=== PATIENT | female | born 1930 | race Caucasian/White ===

== ENCOUNTER 2016-09-12 21:24 | Emergency (ER) | payer OTHER ==
[~2016-09-12] VITALS: Ht 144.8 cm; Wt 70.0 kg
[~2016-09-12 21:24] MED LIST: ASPCH81 PO; CLX20 PO; KFL500 PO; LCTX PO; PLV75 PO; SYN50 PO
[2016-09-12 21:42] VITALS: TEMP 37.4; Ht 144.8 cm; Wt 70.0 kg
[2016-09-12] MEDS ORDERED: [UNRECOGNIZED DRUG - CODE] PO (22:23)
[2016-09-12] MEDS ORDERED: PSYL48.59 PO (22:23)
--- NOTE | 2016-09-12 22:30 | DIAGNOSTIC IMAGING REPORT ---
CHEST ONE VIEW PORTABLE CLINICAL HISTORY: Chest trauma. Pain. COMPARISON STUDY: 06/21/2016 FINDINGS: The heart is mildly enlarged. There is mild interstitial prominence without evidence of overt failure. There is no lobar consolidation. There is mild elevation of the lateral margin of the left hemidiaphragm unchanged the prior study[ IMPRESSION: No significant change. Stable cardiomegaly and interstitial prominence. No acute findings Electronically signed by: Aníbal Guajardo M.D. 09/12/2016 10:28 PM Dictated Date/Time: 09/12/2016 10:27 PM
--- NOTE | 2016-09-12 22:32 | DIAGNOSTIC IMAGING REPORT ---
RIGHT WRIST MIN 3 VIEWS CLINICAL HISTORY: Right wrist pain status post trauma COMPARISON: None. DISCUSSION: The bones are osteopenic. There is an acute intra-articular fracture of the distal radius. There is a dorsal tilt of the radial articular surface of approximately 10 degrees. There is associated ulnar styloid fracture. IMPRESSION: Acute intra-articular fracture of distal radius with slight dorsal tilt of the radial articular surface. Associated ulnar styloid fracture. Electronically signed by: Aníbal Guajardo M.D. 09/12/2016 10:30 PM Dictated Date/Time: 09/12/2016 10:29 PM JAN
--- NOTE | 2016-09-12 22:33 | DIAGNOSTIC IMAGING REPORT ---
LEFT KNEE 3 VIEWS CLINICAL HISTORY: Left knee pain status post trauma COMPARISON: None. DISCUSSION: No fractures or dislocations are visualized. The bones are mildly osteopenic. There are very mild degenerative changes present. IMPRESSION: No acute fractures or dislocations are visualized Electronically signed by: Aníbal Guajardo M.D. 09/12/2016 10:31 PM Dictated Date/Time: 09/12/2016 10:31 PM
[2016-09-12 22:39] VITALS: O2SAT 95
[2016-09-12 22:42] LABS: BASO % 0.2 %; BASO ABS # 0.01 K/uL (0-0.2); COMPLETE YES; EOS % 0.4 %; HEMATOCRIT 40.1 % (37-47); IG% 0.2 %; LYMPH % 7.7 %; LYMPH ABS # 0.39 K/uL (1.2-3.4); MEAN CELL VOLUME 103.1 fL (80-100); MEAN CORPUSCULAR HEMOGLOBIN 35.7 pg (25-34); MEAN CORPUSCULAR HGB CONC 34.7 g/dl (32-36); MEAN PLATELET VOLUME 10.8 fL (7.4-10.4); MONO % 8.3 %; NEUT % 83.2 %; PLATELET COUNT 105 K/uL (130-400); RED BLOOD COUNT 3.89 M/uL (4.2-5.4); WHITE BLOOD COUNT 5.04 K/uL (4.8-10.8)
[2016-09-12] MEDS ORDERED: ACETAMINOPHEN 325 MG TAB PO STA (23:00)
--- NOTE | 2016-09-12 23:03 | EMERGENCY ROOM VISIT NOTE ---
ED Visit Note First contact with patient: 21:38 I have seen and examined this patient with Inocente Teague and generally agree with the treatment plan as discussed. Problem List Medical Problems: (1) Benign hypertension Status: Chronic (2) Depression Status: Chronic (3) Diabetes mellitus type 2 Status: Chronic (4) Gastroesophageal reflux disease Permanent Comment: 1999 Status: Chronic (5) History breast surgery for abscess Permanent Comment: 1951 Status: Chronic (6) History of appendectomy Permanent Comment: left inguinal hernia repair ? 1999 Status: Chronic (7) History of cholecystectomy Permanent Comment: 1997 Status: Chronic (8) History of repair of inguinal hernia Status: Chronic (9) Hypothyroidism Status: Chronic (10) Liver mass Permanent Comment: 2 cm hepatic lesion noted on CT [facility] 02/14/12 Status: Chronic Current/Historical Medications Scheduled Aspirin (Aspirin Low Strength), 81 MG PO QAM Citalopram Hydrobromide (Celexa), 20 MG PO DAILY Clopidogrel (Plavix), 75 MG PO DAILY Levothyroxine Sodium (Synthroid), 50 MCG PO DAILYBB Lisinopril (Zestril), 5 MG PO QAM Magnesium Chloride (Slow-Mag Tab), 64 MG PO DAILY Methenamine Hippurate (Methenamine Hippurate), 1 GM PO BID Omeprazole (Prilosec), 20 MG PO BID Psyllium (Metamucil), 1 TBS PO DAILY Sitagliptin (Januvia), 100 MG PO QAM Scheduled PRN Acetaminophen Tab (Tylenol), 650 MG PO Q4H PRN for Pain or Fever Phenylephrine-Diphenhydramine- (Robitussin Cough & Cold D), 10 ML PO TID PRN for Cough Allergies Coded Allergies: Codeine (Verified Allergy, Mild, 06/21/16) Erythromycin (Verified Allergy, Mild, 06/21/16) Metformin (Verified Allergy, Unknown, UNKN, 06/21/16) Morphine and Related (Verified Allergy, Unknown, unkn, 06/21/16) Vital Signs Date Time Temp Pulse Resp B/P Pulse Ox O2 Delivery O2 Flow Rate FiO2 09/12/16 22:47 62 09/12/16 22:39 95 Room Air 09/12/16 21:42 37.4 66 17 127/65 94 Room Air Laboratory Results 09/12/16 22:32 Red Blood Count 3.89, Mean Corpuscular Volume 103.1, Mean Corpuscular Hemoglobin 35.7, Mean Corpuscular Hemoglobin Concent 34.7, Mean Platelet Volume 10.8, Neutrophils (%) (Auto) 83.2, Lymphocytes (%) (Auto) 7.7, Monocytes (%) ( Auto) 8.3, Eosinophils (%) (Auto) 0.4, Basophils (%) (Auto) 0.2, Neutrophils # ( Auto) 4.19, Lymphocytes # (Auto) 0.39, Monocytes # (Auto) 0.42, Eosinophils # ( Auto) 0.02, Basophils # (Auto) 0.01 Test 09/12/16 21:46 09/12/16 22:32 Creatine Kinase MB Ratio (0-3.0) White Blood Count 5.04 K/uL (4.8-10.8) Red Blood Count 3.89 M/uL (4.2-5.4) Hemoglobin 13.9 g/dL (12.0-16.0) Hematocrit 40.1 % (37-47) Mean Corpuscular Volume 103.1 fL (80-100) Mean Corpuscular Hemoglobin 35.7 pg (25-34) Mean Corpuscular Hemoglobin Concent 34.7 g/dl (32-36) Platelet Count 105 K/uL (130-400) Mean Platelet Volume 10.8 fL (7.4-10.4) Neutrophils (%) (Auto) 83.2 % Lymphocytes (%) (Auto) 7.7 % Monocytes (%) (Auto) 8.3 % Eosinophils (%) (Auto) 0.4 % Basophils (%) (Auto) 0.2 % Neutrophils # (Auto) 4.19 K/uL (1.4-6.5) Lymphocytes # (Auto) 0.39 K/uL (1.2-3.4) Monocytes # (Auto) 0.42 K/uL (0.11-0.59) Eosinophils # (Auto) 0.02 K/uL (0-0.5) Basophils # (Auto) 0.01 K/uL (0-0.2) RDW Standard Deviation 55.4 fL (36.4-46.3) RDW Coefficient of Variation 14.7 % (11.5-14.5) Immature Granulocyte % (Auto) 0.2 % Immature Granulocyte # (Auto) 0.01 K/uL (0.00-0.02) Departure Information [facility] Patient Instructions A Signature Page, [facility]
[2016-09-12 23:06] LABS: ALB/GLOB RATIO 0.9 (0.9-2); ALT/SGPT 13 U/L (12-78); BLOOD UREA NITROGEN 27 mg/dl (7-18); BUN/CREATININE RATIO 41.4 (10-20); CHLORIDE 102 mmol/L (98-107); CREATININE 0.65 mg/dl (0.60-1.20); GLUCOSE 133 mg/dl (70-99)
[2016-09-12 23:07] LABS: ALKALINE PHOSPHATASE 71 U/L (45-117); CALCIUM 8.9 mg/dl (8.5-10.1); CARBON DIOXIDE 27 mmol/L (21-32); SODIUM 137 mmol/L (136-145)
[2016-09-12 23:32] LABS: INR 1.1 (0.9-1.1); PARTIAL THROMBOPLASTIN RATIO 1.1
[2016-09-12 23:37] LABS: POTASSIUM 3.9 mmol/L (3.5-5.1)
[2016-09-12 23:45] LABS: MAGNESIUM 1.7 mg/dl (1.8-2.4)
[2016-09-13] LABS: URINE APPEARANCE CLEAR (CLEAR); URINE BILIRUBIN NEG (NEG); URINE COLOR YELLOW; URINE EPITHELIAL CELL AUTO >30 /lpf (0-5); URINE NITRITE NEG (NEG); UROBILINOGEN NEG (NEG); ZZURINE CULT IF INDIC CATH NO
[2016-09-13 00:11] LABS: MANUAL MICROSCOPIC REQUIRED? NO; REVIEW REQ? YES
[2016-09-13 00:21] LABS: URINE MUCUS PRESENT (NONE PRSENT)
--- NOTE | 2016-09-13 01:11 | EMERGENCY ROOM VISIT NOTE ---
History First contact with patient: 21:38 Chief Complaint: FALL Stated Complaint: FALL/ LF KNEE & RT WRIST PAIN/WRIST W/DEFORMITY History of Present Illness The patient is a 86 year old female who presents to the Emergency Department via EMS for evaluation after sustaining a fall. The patient is a resident at a local [facility] care facility. It was thought that she fell at approximately 7 PM. It is uncertain if she struck her head. The patient does not communicate well secondary to her mental status. She complains of pain to the RIGHT wrist. She denies any head pain or pain anywhere else for that matter. History of present illness is limited secondary to the patient's baseline mental status. Review of Systems Review of systems Limited secondary to the patient's mental status. Past Medical/Surgical History Medical Problems: (1) Benign hypertension (2) CVA (cerebral vascular accident) (3) Depression (4) Diabetes mellitus type 2 (5) EKG abnormalities (6) Gastroesophageal reflux disease (7) History breast surgery for abscess (8) History of appendectomy (9) History of cholecystectomy (10) History of repair of inguinal hernia (11) Hypothyroidism (12) Liver mass Family History No pertinent family history Social History Smoking Status: Unknown if Ever Smoked Alcohol Use: none Drug Use: none Marital Status: Housing Status: lives alone, alf Occupation Status: retired Current/Historical Medications Scheduled Aspirin (Aspirin Low Strength), 81 MG PO QAM Citalopram Hydrobromide (Celexa), 20 MG PO DAILY Clopidogrel (Plavix), 75 MG PO DAILY Levothyroxine Sodium (Synthroid), 50 MCG PO DAILYBB Lisinopril (Zestril), 5 MG PO QAM Magnesium Chloride (Slow-Mag Tab), 64 MG PO DAILY Methenamine Hippurate (Methenamine Hippurate), 1 GM PO BID Omeprazole (Prilosec), 20 MG PO BID Psyllium (Metamucil), 1 TBS PO DAILY Sitagliptin (Januvia), 100 MG PO QAM Scheduled PRN Acetaminophen Tab (Tylenol), 650 MG PO Q4H PRN for Pain or Fever Phenylephrine-Diphenhydramine- (Robitussin Cough & Cold D), 10 ML PO TID PRN for Cough Allergies Coded Allergies: Codeine (Verified Allergy, Mild, 06/21/16) Erythromycin (Verified Allergy, Mild, 06/21/16) Metformin (Verified Allergy, Unknown, UNKN, 06/21/16) Morphine and Related (Verified Allergy, Unknown, unkn, 06/21/16) Physical Exam Vital Signs Date Time Temp Pulse Resp B/P Pulse Ox O2 Delivery O2 Flow Rate FiO2 09/13/16 02:31 85 20 149/73 94 09/13/16 01:40 72 20 115/73 95 Room Air 09/12/16 23:40 62 16 142/75 96 Room Air 09/12/16 22:47 62 09/12/16 22:39 95 Room Air 09/12/16 21:42 37.4 66 17 127/65 94 Room Air Pain Rating (0-10): 5 Physical Exam VITAL SIGNS - Vital signs and nursing notes were reviewed. GENERAL - 86-year-old female appearing her stated age. Pleasantly demented. SKIN - Gross examination of the entire body surface demonstrates a small area of ecchymosis to the anterior portion of the LEFT knee. No lacerations or abrasions noted throughout otherwise. HEAD - Normocephalic, Atraumatic. No Jordan's Sign or Raccoon's Eyes. No depressed skull fractures palpable. EYES - PERRL with EOMI bilaterally. Without subconjunctival hemorrhage. Palpebral conjunctiva pink and moist with no injection. EARS - No deformities of external structures noted on gross examination bilaterally. No hemotympanum present. No tympanic perforation noted. Handle of malleus, umbo, cone of light, pars tensa/flaccid all easily visualized. NOSE - Midline and without cyanosis. No epistaxis or clear watery discharge noted. Septum midline without deviation. No septal hematoma noted. No overlying ecchymosis noted. MOUTH/OROPHARYNX - Without perioral cyanosis. Tongue midline with equal elevation of palate bilaterally. No blood noted in the oropharynx. No tonsillar hypertrophy, erythema, or exudates noted. NECK - No tenderness to palpation over the cervical spinous processes. No cervical paraspinal muscle tenderness noted. LUNGS - Chest wall symmetric without accessory muscle use, intercostals retractions, or central cyanosis. No flail chest or depressed fractures noted. No tenderness to palpation across the anterior and posterior chest chavarria. Normal vesicular breath sounds CTA B/L. No wheezes, rales, or rhonchi appreciated. CARDIAC - RRR with S1/S2. No murmur, rubs, or gallops appreciated. ABDOMEN - Abdominal contour flat without pulsations or visible masses. BS normoactive all four quadrants. No rebound tenderness or guarding noted. No tenderness, palpable masses, hepatosplenomegaly, or ascites noted. EXTREMITIES - Slight deformity to the RIGHT wrist. Moderate tenderness to palpation. +3/5 radial and dorsalis pedis pulses palpated throughout. NEUROLOGIC - Cranial nerves II through XII grossly intact. Medical Decision & Procedures ER Provider Diagnostic Interpretation: Radiological imaging and reports were reviewed by myself. Radiologist's Interpretation as follows: CHEST ONE VIEW PORTABLE CLINICAL HISTORY: Chest trauma. Pain. COMPARISON STUDY: 06/21/2016 FINDINGS: The heart is mildly enlarged. There is mild interstitial prominence without evidence of overt failure. There is no lobar consolidation. There is mild elevation of the lateral margin of the left hemidiaphragm unchanged the prior study[ IMPRESSION: No significant change. Stable cardiomegaly and interstitial prominence. No acute findings LEFT KNEE 3 VIEWS CLINICAL HISTORY: Left knee pain status post trauma COMPARISON: None. DISCUSSION: No fractures or dislocations are visualized. The bones are mildly osteopenic. There are very mild degenerative changes present. IMPRESSION: No acute fractures or dislocations are visualized RIGHT WRIST W/NAVICULAR MIN 3 VIEWS CLINICAL HISTORY: Right wrist pain status post trauma COMPARISON: None. DISCUSSION: The bones are osteopenic. There is an acute intra-articular fracture of the distal radius. There is a dorsal tilt of the radial articular surface of approximately 10 degrees. There is associated ulnar styloid fracture. IMPRESSION: Acute intra-articular fracture of distal radius with slight dorsal tilt of the radial articular surface. Associated ulnar styloid fracture. Radiological imaging and reports were reviewed by myself. Radiologist's Interpretation per [facility] as follows: CT HEAD: No ICH, mass effect or edema. No skull fracture. Atrophy/white matter changes with redemonstration mesial left occipital encephalomalacia. Partial patient education left mastoid air cells. Comparison study dated 06/21/2016 CT C SPINE: No visualized fracture. Straightening of the normal lordotic curvature with mild focal kyphosis at C5-6. Presumed degenerative grade 1 anterior listhesis C4 on C5. Spondylosis greater at the C5-6 levels with posterior hypertrophic changes. Scattered small lytic appearing lesions; difficult to discern bony demineralization versus potential pathologic contribution such as multiple myeloma. Mucosal changes maxillary sinuses. Laboratory Results 09/12/16 22:32 Red Blood Count 3.89, Mean Corpuscular Volume 103.1, Mean Corpuscular Hemoglobin 35.7, Mean Corpuscular Hemoglobin Concent 34.7, Mean Platelet Volume 10.8, Neutrophils (%) (Auto) 83.2, Lymphocytes (%) (Auto) 7.7, Monocytes (%) ( Auto) 8.3, Eosinophils (%) (Auto) 0.4, Basophils (%) (Auto) 0.2, Neutrophils # ( Auto) 4.19, Lymphocytes # (Auto) 0.39, Monocytes # (Auto) 0.42, Eosinophils # ( Auto) 0.02, Basophils # (Auto) 0.01 09/12/16 22:32 09/12/16 23:09 Test 09/12/16 22:32 09/12/16 23:09 09/12/16 23:45 White Blood Count 5.04 K/uL (4.8-10.8) Red Blood Count 3.89 M/uL (4.2-5.4) Hemoglobin 13.9 g/dL (12.0-16.0) Hematocrit 40.1 % (37-47) Mean Corpuscular Volume 103.1 fL (80-100) Mean Corpuscular Hemoglobin 35.7 pg (25-34) Mean Corpuscular Hemoglobin Concent 34.7 g/dl (32-36) Platelet Count 105 K/uL (130-400) Mean Platelet Volume 10.8 fL (7.4-10.4) Neutrophils (%) (Auto) 83.2 % Lymphocytes (%) (Auto) 7.7 % Monocytes (%) (Auto) 8.3 % Eosinophils (%) (Auto) 0.4 % Basophils (%) (Auto) 0.2 % Neutrophils # (Auto) 4.19 K/uL (1.4-6.5) Lymphocytes # (Auto) 0.39 K/uL (1.2-3.4) Monocytes # (Auto) 0.42 K/uL (0.11-0.59) Eosinophils # (Auto) 0.02 K/uL (0-0.5) Basophils # (Auto) 0.01 K/uL (0-0.2) RDW Standard Deviation 55.4 fL (36.4-46.3) RDW Coefficient of Variation 14.7 % (11.5-14.5) Immature Granulocyte % (Auto) 0.2 % Immature Granulocyte # (Auto) 0.01 K/uL (0.00-0.02) Anion Gap 8.0 mmol/L (3-11) Est Creatinine Clear Calc Drug Dose 50.2 ml/min Estimated GFR () 93.2 Estimated GFR (Non- 80.4 BUN/Creatinine Ratio 41.4 (10-20) Calcium Level 8.9 mg/dl (8.5-10.1) Total Bilirubin 0.6 mg/dl (0.2-1) Alanine Aminotransferase (ALT/SGPT) 13 U/L (12-78) Alkaline Phosphatase 71 U/L (45-117) Creatine Kinase MB < 0.5 ng/ml (0.5-3.6) Creatine Kinase MB Ratio (0-3.0) Total Protein 6.9 gm/dl (6.4-8.2) Albumin 3.2 gm/dl (3.4-5.0) Globulin 3.7 gm/dl (2.5-4.0) Albumin/Globulin Ratio 0.9 (0.9-2) Prothrombin Time 12.0 SECONDS (9.0-12.0) Prothromb Time International Ratio 1.1 (0.9-1.1) Activated Partial Thromboplast Time 28.8 SECONDS (21.0-31.0) Partial Thromboplastin Ratio 1.1 Magnesium Level 1.7 mg/dl (1.8-2.4) Aspartate Amino Transf (AST/SGOT) 13 U/L (15-37) Total Creatine Kinase 20 U/L (26-192) Urine Color YELLOW Urine Appearance CLEAR (CLEAR) Urine pH 6.0 (4.5-7.5) Urine Specific Needles 1.020 (1.000-1.030) Urine Protein NEG (NEG) Urine Glucose (UA) NEG (NEG) Urine Ketones NEG (NEG) Urine Occult Blood NEG (NEG) Urine Nitrite NEG (NEG) Urine Bilirubin NEG (NEG) Urine Urobilinogen NEG (NEG) Urine Leukocyte Esterase NEG (NEG) Urine WBC (Auto) 1-5 /hpf (0-5) Urine RBC (Auto) 0-4 /hpf (0-4) Urine Hyaline Casts (Auto) 1-5 /lpf (0-5) Urine Epithelial Cells (Auto) >30 /lpf (0-5) Urine Bacteria (Auto) NEG (NEG) Urine Renal Epithelial Cells /lpf (0-5) Urine Mucus PRESENT (NONE PRSENT) Procedure Patient was placed on the cafeteria monitor and monitored throughout the entire extent of their stay. In addition, the patient's pulse oximetry was monitored throughout the entire stay. Any abnormalities or aberrancies were addressed appropriately. ECG Indication: other (fall) Rate (beats per minute): 63 Rhythm: normal sinus Findings: nonspecific-ST abn (Anterior) Comparison ECG Date: no longer T-wave inversions in anterior leads when compared to 06/21/2016. ED Course Patient was seen and evaluated by myself. Previous emergency department visit notes and hospitalizations were reviewed. On initial evaluation, the patient does have some mild edema and possible deformity noted to the RIGHT wrist. The patient does not communicate well secondary to dementia. It was reported the patient had a mechanical fall. I did have them perform x-rays immediately and the patient was placed in a sugar tong splint for comfort. Splint was placed by the emergency department biochemistry technician under my direct supervision. Patient remained neurovascularly intact pre-and post-splinting. This did appear to provide the patient a moderate amount of comfort. Labs were drawn, saline lock in place. Chest x-ray as well as x-ray of the LEFT knee were obtained. EKG demonstrates no acute findings. CT of head and cervical spine were obtained. Laboratory results demonstrate no acute leukocytosis, worrisome anemia, or bandemia. The patient has no significant electrolyte abnormalities. Cardiac enzymes are negative. Troponin is negative. CT of the head and neck are otherwise unremarkable. The patient was able to ambulate in the emergency Department without assistance. She was provided an arm sling for comfort. She will return to the nursing facility. It was stressed that she will need to follow-up with orthopedic surgery for definitive management of her wrist fracture. Patient discharged home in good condition. Medical Decision Given the patient's presentation and exam findings, I did elect to perform the above-mentioned workup. The patient was sent today after sustaining a fall that was unwitnessed. She does have moderate edema and fracture to the RIGHT distal wrist. She has no other noted significant trauma findings. CT the head and cervical spine injury no acute findings. She has no focal neurological deficits. She is pleasantly demented otherwise. The patient tolerated the pain well, particularly after splint was applied for comfort. The patient will follow-up with orthopedic surgery within the next few days for continued management. She will return for any changing or worsening symptoms. Patient discharged home in good condition. In the evaluation and treatment of this patient, the following differential diagnoses were considered: CVA, TIA, cervical fracture, subdural hematoma, subarachnoid hemorrhage, ACS, NE, wrist dislocation, amongst others. Impression Primary Impression: Radius and ulna distal fracture Additional Impression: Fall Departure Information Dispostion Home / Self-Care Condition GOOD [facility] ([facility] Murali Whiteside D.O. Patient Instructions A Signature Page, [facility] [employer] Additional Instructions You have been treated in the Emergency Department for your Distal Radius and Ulnar Fractures after a mechanical fall. For pain control, you can use the following [id number] medicines (if >12 yo): - Regular strength (325mg/tab) Tylenol (acetaminophen) 2 tabs every 4-6 hours as needed. Do not exceed 12 tablets in a 24 hour period. Avoid taking more than 4 grams (4000 mg) of Tylenol per day. This includes any other sources of acetaminophen you may take on a regular basis. - Regular strength (200 mg/tab) Advil (ibuprofen) 1-2 tabs every 4-6 hours as needed. Do not exceed a dose of 3200 mg per day. If this is a recent injury (<24 hrs), ice can be applied to the area of pain for the first 3 days to help decrease pain and inflammation. You have been provided the number for an Orthopaedic Surgeon. You should call this number as soon as possible to establish a follow-up visit from today's Emergency Department visit. Keep the brace in place until evaluated by Orthopedics. Return to the Emergency Department if your current symptoms worsen despite treatment course outlined above, or if you develop any of the following symptoms : intractable pain despite aforementioned treatment course or new onset of numbness or tingling of the fingers.
[2016-09-13 02:31] VITALS: BP 149/73; PULSE 85; O2SAT 94
--- NOTE | 2016-09-13 07:13 | DIAGNOSTIC IMAGING REPORT ---
HEAD CT NONCONTRAST CT DOSE: HISTORY: fall TECHNIQUE: Multiaxial CT images of the head were performed without the use of intravenous contrast. Automated exposure control was utilized for this study. Comparison: Head CT 06/21/2016. Findings: A few opacified left mastoid air cells, unchanged. Paranasal sinuses and right mastoid air cells are clear. The calvarium and skull base are intact. There is no mass, hematoma, midline shift, acute infarct. White matter hypodensity is nonspecific but suggestive of microvascular ischemic change. The ventricles and sulci demonstrate mild age-related involutional changes. Old infarct within the left occipital lobe, unchanged. Old lacunar infarcts within the basal ganglia and thalami. Impression: No significant change compared to the prior study. No acute intracranial abnormality. Electronically signed by: Zhen Rosas M.D. 09/13/2016 7:11 AM Dictated Date/Time: 09/13/2016 7:08 AM
--- NOTE | 2016-09-13 07:25 | DIAGNOSTIC IMAGING REPORT ---
CT SCAN OF THE CERVICAL SPINE CLINICAL HISTORY: Fall. Trauma. COMPARISON STUDY: No priors. TECHNIQUE: CT scan of the cervical spine is performed from the skull base to the upper thoracic spine. Images are reviewed in the axial, sagittal, and coronal planes. IV contrast was not administered for this examination. CT DOSE: 927.56 mGy.cm FINDINGS: Skeletal structures: The skeletal structures are osteopenic. There is no evidence of fracture or subluxation involving the cervical spine. Vertebral body height is maintained. There is 3 mm of anterolisthesis at C4-C5. Minimal anterolisthesis is present C5-C6. Alignment is otherwise preserved. There is straightening of cervical lordosis with reversal centered at C5. The odontoid process and lateral masses are intact. The atlantoaxial articulation is preserved. The spinous processes appear intact. There is moderate multilevel cervical spondylosis. Uncovertebral and facet arthropathy contribute to neural foraminal narrowing at several levels. This is greatest in the lower cervical region. Intervertebral discs: There is moderate degenerative disc space narrowing at C5-C6. Mild narrowing is seen at C4-C5 and C6-C7. Central canal: A posterior disc osteophyte complex at C5-C6 likely contributes to acquired compromise of the central canal. Soft tissues: The prevertebral and paraspinous soft tissues are within normal limits. There is atherosclerotic calcification of the carotid bulbs. Calcified tonsilliths are incidentally noted. Calvarium: The visualized calvarium at the skull base appears intact. Brain parenchyma: Partially visualized brain parenchyma the skull base is within normal limits noting age-related involutional change. Sinuses and mastoids: The visualized paranasal sinuses are clear. There is a left mastoid effusion. The right mastoid air cells are well pneumatized. Lung apices: A calcified granuloma is incidentally noted at the left apex. Imaged apical lung parenchyma is otherwise clear as visualized. IMPRESSION: 1. There is no evidence of fracture or subluxation involving the cervical spine. 2. Osteopenia and spondylosis as above. Electronically signed by: Adan Chairez M.D. 09/13/2016 7:23 AM Dictated Date/Time: 09/13/2016 7:19 AM
[2016-11-27] MEDS ORDERED: LISI-729 PO (13:20)
[2016-11-27] MEDS ORDERED: SITA1TAB27 PO (14:17)
[2016-11-27] MEDS ORDERED: OMEP20CA59 PO (14:17)
== END 2016-09-13 02:34 | disposition home or self-care (01) ==
LOC: EDBD 21:24 → C.EDB 21:26
DX: S52.571A Other intraarticular fracture of lower end of right radius, initial encounter for closed fracture (principal); S52.614A Nondisplaced fracture of right ulna styloid process, initial encounter for closed fracture; F03.90 Unspecified dementia, unspecified severity, without behavioral disturbance, psychotic disturbance, mood disturbance, and anxiety; I10 Essential (primary) hypertension; E11.9 Type 2 diabetes mellitus without complications; E03.9 Hypothyroidism, unspecified; F32.9 Major depressive disorder, single episode, unspecified; K21.9 Gastro-esophageal reflux disease without esophagitis; Z79.02 Long term (current) use of antithrombotics/antiplatelets; Z79.82 Long term (current) use of aspirin; Z79.84 Long term (current) use of oral hypoglycemic drugs; Z79.899 Other long term (current) drug therapy; Z88.1 Allergy status to other antibiotic agents; Z88.5 Allergy status to narcotic agent; Z88.8 Allergy status to other drugs, medicaments and biological substances; Z86.73 Personal history of transient ischemic attack (TIA), and cerebral infarction without residual deficits; W19.XXXA Unspecified fall, initial encounter
CPT/HCPCS: 29125; P9612

== ENCOUNTER → 2016-09-13 | Outpatient (CLI) | payer OTHER ==
[~2016-09-13] MED LIST changes: +ACET325T96 PO; +CITA20TA9 PO; +CLOP1TAB15 PO; -CLX20 PO; -KFL500 PO; -LCTX PO; +LEVO50TA PO; +LISI-729 PO; +MAGNTAB4 PO; +METH1TAB5 PO; +NF406 PO; +NUTR-706 PO; +OMEP20CA59 PO; +OSEL75CA12 PO; -PLV75 PO; +PSYL48.58 PO; +PSYL48.59 PO; +SITA1TAB27 PO; -SYN50 PO; +[UNRECOGNIZED DRUG - CODE] PO; +[UNRECOGNIZED DRUG - CODE] PO
== END | disposition home or self-care (01) ==
LOC: C.LABSPEC 16:36
PROVIDERS: ATTEND Internal Medicine
DX: J11.1 Influenza due to unidentified influenza virus with other respiratory manifestations (principal)

== ENCOUNTER 2016-09-16 11:20 | Emergency (ER) | payer OTHER ==
[~2016-09-16 11:20] MED LIST changes: -ACET325T96 PO; -CITA20TA9 PO; -CLOP1TAB15 PO; -LEVO50TA PO; -LISI-729 PO; -MAGNTAB4 PO; -METH1TAB5 PO; -NF406 PO; -NUTR-706 PO; -OMEP20CA59 PO; -OSEL75CA12 PO; -PSYL48.58 PO; -SITA1TAB27 PO; -[UNRECOGNIZED DRUG - CODE] PO
[2016-09-16] MEDS ORDERED: NF406 PO (11:48)
[2016-09-16] MEDS ORDERED: SODIUM CHLORIDE 0.9% 1000ML 500 ML IV STA (12:04)
[2016-09-16] MEDS ORDERED: ONDANSETRON INJ 2 MG/ML 2 ML VIAL IV STA (12:04)
[2016-09-16] MEDS ORDERED: ACETAMINOPHEN 500 MG TAB PO STA (12:04)
[2016-09-16 12:15] LABS: HEMATOCRIT 40.6 % (37-47); MEAN CELL VOLUME 102.8 fL (80-100); MEAN CORPUSCULAR HEMOGLOBIN 36.2 pg (25-34); MEAN CORPUSCULAR HGB CONC 35.2 g/dl (32-36); RED BLOOD COUNT 3.95 M/uL (4.2-5.4); WHITE BLOOD COUNT 3.86 K/uL (4.8-10.8)
--- NOTE | 2016-09-16 12:20 | EMERGENCY ROOM VISIT NOTE ---
History Report prepared by Fredi: Eric Amos Under the Supervision of: Dr. Anshu Guerrier M.D. First contact with patient: 11:53 Chief Complaint: ALTERED MENTAL STATUS Stated Complaint: ALTERED MENTAL STATUS Nursing Triage Summary: pt to the ED via EMS from [facility], pt was seen here on 09/12 and tested + for the flu her baseline mental status is she is A&o and since the +flu pt has had decreased PO intake and doesn't walk now which she did previously. pt able to say her name and that this is the hospital pt has a right arm FA cast BSg per EMS 111 History of Present Illness The patient is an 86 year old female who presents to the Emergency Room with complaints of persistent altered mental status that started a few days ago. The patient was taken here via EMS. Per the nursing staff, the patient tested positive for influenza 4 days ago. Ever since then she has been getting confused. The patient says she is not feeling well. She does not know what year it is and she does not know where she is. The patient's baseline mental status is awake and alert, per the nursing staff. She has also had reduced by-mouth intake lately. History is limited secondary to patient's altered mental status. Source of History: patient, nursing staff History Limited By: AMS Onset: A few days ago Position: other (global - AMS) Quality: other (confused) Timing: other (persistent) Note: Associated symptoms: Confusion, reduced by-mouth intake. Review of Systems ROS limited secondary to patient's altered mental status. Past Medical & Surgical Medical Problems: (1) Benign hypertension (2) CVA (cerebral vascular accident) (3) Depression (4) Diabetes mellitus type 2 (5) EKG abnormalities (6) Gastroesophageal reflux disease (7) History breast surgery for abscess (8) History of appendectomy (9) History of cholecystectomy (10) History of repair of inguinal hernia (11) Hypothyroidism (12) Liver mass Family History No pertinent family history Social History Smoking Status: Unknown if Ever Smoked Alcohol Use: none Drug Use: none Marital Status: Housing Status: lives alone, jail Occupation Status: retired Current/Historical Medications Scheduled Citalopram Hydrobromide (Celexa), 20 MG PO DAILY Clopidogrel (Plavix), 75 MG PO DAILY Levothyroxine Sodium (Synthroid), 50 MCG PO DAILYBB Lisinopril (Zestril), 5 MG PO QAM Magnesium Chloride (Slow-Mag Tab), 64 MG PO DAILY Methenamine Hippurate (Methenamine Hippurate), 1 GM PO BID Omeprazole (Prilosec), 20 MG PO BID Oseltamivir (Tamiflu), 75 MG PO BID Oseltamivir Phosphate (Tamiflu), 75 MG PO BID Psyllium (Metamucil), 1 TBS PO DAILY Sitagliptin (Januvia), 100 MG PO QAM Scheduled PRN Acetaminophen Tab (Tylenol), 650 MG PO Q4H PRN for Pain or Fever Phenylephrine-Diphenhydramine- (Robitussin Cough & Cold D), 10 ML PO TID PRN for Cough Allergies Coded Allergies: Codeine (Verified Allergy, Mild, 06/21/16) Erythromycin (Verified Allergy, Mild, 06/21/16) Metformin (Verified Allergy, Unknown, UNKN, 06/21/16) Morphine and Related (Verified Allergy, Unknown, unkn, 06/21/16) Physical Exam Vital Signs Date Time Temp Pulse Resp B/P Pulse Ox O2 Delivery O2 Flow Rate FiO2 09/16/16 15:07 36.8 60 16 161/86 98 Room Air 2.0 09/16/16 13:19 97 Room Air 09/16/16 13:18 96 Nasal Cannula 2.0 09/16/16 12:50 55 09/16/16 12:45 54 16 167/82 97 Room Air 09/16/16 11:27 37.0 59 20 163/73 95 Room Air 09/16/16 11:27 59 Physical Exam CONSTITUTIONAL: No acute distress. HEENT: No icterus, moist mucous membranes NECK: No meningismus, trachea is midline. CARDIOVASCULAR: Regular rate, normal perfusion RESPIRATORY: Coarse breath sounds bilaterally. GASTROINTESTINAL: Non-tender GENITOURINARY: No flank tenderness MUSCULOSKELETAL: Full range of motion NEUROLOGIC: No acute gross focal deficits. PSYCHIATRIC: Normal affect SKIN: Normal for ethnicity. Medical Decision & Procedures ER Provider Diagnostic Interpretation: X-ray results as stated below per my interpretation and radiologist interpretation. Other radiology results as stated below per my review and radiologist interpretation. CT HEAD WITHOUT CONTRAST (CT) CLINICAL HISTORY: Acute change in mental status. Flulike symptoms. COMPARISON STUDY: 09/12/2016 TECHNIQUE: Axial CT of the brain is performed from the vertex to the skull base. IV contrast was not administered for this examination. CT DOSE: 638.56 mGycm FINDINGS: No intra or extra-axial mass lesions are visualized. There is no CT evidence of acute cortical infarction. There is no evidence of midline shift. There is no acute hemorrhage. No calvarial fractures are visualized. There are moderate white matter hypodensities likely on a small vessel basis. There is an old left occipital lobe infarct. There are old bilateral thalamic, and basal ganglia infarcts. There is no evidence of pathologic ventricular dilatation. There is a trace left maxillary sinus air-fluid level. There is mucosal thickening within the right maxillary sinus. There is minimal sphenoid and ethmoid sinus mucosal thickening IMPRESSION: 1. Interval development of a trace left maxillary sinus air-fluid level 2. No acute intracranial findings Electronically signed by: Aníbal Guajardo M.D. 09/16/2016 12:44 PM Dictated Date/Time: 09/16/2016 12:42 PM CHEST 2 VIEWS ROUTINE CLINICAL HISTORY: Altered mental status. Flu. COMPARISON STUDY: Chest radiograph February or 2016. FINDINGS: No pneumothorax or pleural effusion is present. There is no consolidation. Pulmonary vascularity is normal. Cardiomediastinal silhouette is stable. A 1.8 cm left infrahilar density likely reflects normal vessels. IMPRESSION: 1. No acute cardiopulmonary findings. 2. 1.8 cm left perihilar density. This likely reflects normal vessels. A nodule is considered less likely. Short-term follow-up PA and shallow oblique radiographs of the chest are recommended. Electronically signed by: Stuart Salcido M.D. 09/16/2016 2:57 PM Dictated Date/Time: 09/16/2016 2:54 PM Laboratory Results 09/16/16 11:47 Red Blood Count 3.95, Mean Corpuscular Volume 102.8, Mean Corpuscular Hemoglobin 36.2, Mean Corpuscular Hemoglobin Concent 35.2, Mean Platelet Volume 10.3, Neutrophils (%) (Auto) 49.4, Lymphocytes (%) (Auto) 36.3, Monocytes (%) ( Auto) 10.6, Eosinophils (%) (Auto) 3.4, Basophils (%) (Auto) 0.3, Neutrophils # (Auto) 1.91, Lymphocytes # (Auto) 1.40, Monocytes # (Auto) 0.41, Eosinophils # ( Auto) 0.13, Basophils # (Auto) 0.01 09/16/16 11:47 09/16/16 12:50 Test 09/16/16 11:47 09/16/16 12:48 09/16/16 12:50 09/16/16 13:30 White Blood Count 3.86 K/uL (4.8-10.8) Red Blood Count 3.95 M/uL (4.2-5.4) Hemoglobin 14.3 g/dL (12.0-16.0) Hematocrit 40.6 % (37-47) Mean Corpuscular Volume 102.8 fL (80-100) Mean Corpuscular Hemoglobin 36.2 pg (25-34) Mean Corpuscular Hemoglobin Concent 35.2 g/dl (32-36) Platelet Count 94 K/uL (130-400) Mean Platelet Volume 10.3 fL (7.4-10.4) Neutrophils (%) (Auto) 49.4 % Lymphocytes (%) (Auto) 36.3 % Monocytes (%) (Auto) 10.6 % Eosinophils (%) (Auto) 3.4 % Basophils (%) (Auto) 0.3 % Neutrophils # (Auto) 1.91 K/uL (1.4-6.5) Lymphocytes # (Auto) 1.40 K/uL (1.2-3.4) Monocytes # (Auto) 0.41 K/uL (0.11-0.59) Eosinophils # (Auto) 0.13 K/uL (0-0.5) Basophils # (Auto) 0.01 K/uL (0-0.2) RDW Standard Deviation 54.5 fL (36.4-46.3) RDW Coefficient of Variation 14.5 % (11.5-14.5) Immature Granulocyte % (Auto) 0.0 % Immature Granulocyte # (Auto) 0.00 K/uL (0.00-0.02) Anion Gap 9.0 mmol/L (3-11) Estimated GFR () 93.2 Estimated GFR (Non- 80.4 BUN/Creatinine Ratio 49.1 (10-20) Calcium Level 9.1 mg/dl (8.5-10.1) Alanine Aminotransferase (ALT/SGPT) 12 U/L (12-78) Alkaline Phosphatase 68 U/L (45-117) Troponin I 0.017 ng/ml (0-0.045) Pro-B-Type Natriuretic Peptide 550 pg/ml (0-1800) Total Protein 6.4 gm/dl (6.4-8.2) Albumin 3.1 gm/dl (3.4-5.0) Globulin 3.3 gm/dl (2.5-4.0) Albumin/Globulin Ratio 0.9 (0.9-2) Influenza Type A Antigen POS for Influ A (NEG) Influenza Type B Antigen Neg for Influ B (NEG) Total Bilirubin 0.5 mg/dl (0.2-1) Direct Bilirubin 0.2 mg/dl (0-0.2) Aspartate Amino Transf (AST/SGOT) 16 U/L (15-37) Urine Color DK YELLOW Urine Appearance CLEAR (CLEAR) Urine pH 5.5 (4.5-7.5) Urine Specific Sharon 1.021 (1.000-1.030) Urine Protein NEG (NEG) Urine Glucose (UA) NEG (NEG) Urine Ketones TRACE (NEG) Urine Occult Blood NEG (NEG) Urine Nitrite NEG (NEG) Urine Bilirubin NEG (NEG) Urine Urobilinogen NEG (NEG) Urine Leukocyte Esterase TRACE (NEG) Urine WBC (Auto) 5-10 /hpf (0-5) Urine RBC (Auto) 0-4 /hpf (0-4) Urine Hyaline Casts (Auto) 1-5 /lpf (0-5) Urine Epithelial Cells (Auto) >30 /lpf (0-5) Urine Bacteria (Auto) 1+ (NEG) Urine Renal Epithelial Cells /lpf (0-5) Urine Pathogenic Casts /lpf (0) Urine Mucus PRESENT (NONE PRSENT) Labs reviewed by ED physician. Medications Administered Medications (Trade) Dose Ordered Sig/Corrine Route Start Time Stop Time Status Last Admin Dose Admin Ondansetron HCl (Zofran Inj) 4 mg NOW STAT IV 09/16/16 12:04 09/16/16 12:06 DC 09/16/16 13:12 4 MG Acetaminophen 1000 mg 1,000 mg NOW STAT PO 09/16/16 12:04 09/16/16 12:06 DC 09/16/16 13:20 1,000 MG Sodium Chloride (Nss 1000ml) 500 ml @ 0 mls/hr Q0M STAT IV 09/16/16 12:04 09/16/16 12:06 DC 09/16/16 13:10 0 MLS/HR ECG Indication: altered mental status Rate (beats per minute): 60 Rhythm: normal sinus Findings: no ectopy, other (nonspecific-ST findings) ED Course 1201: Past medical records reviewed. The patient was evaluated in room C7. A complete history and physical examination was performed. 1204: Ordered NSS 500 ml @ 0 mls/hr Wide Open IV, Tylenol Tab 1000 mg PO, Zofran Inj 4 mg IV. 1336: I discussed the patient with a staff member at [facility] - she said that the patient has had worsening speaking difficulties over the past several days. 1500: I reevaluated the patient and she is resting comfortably. The patient expressed agreement and understanding of the treatment plan. The patient will be discharged. 1507: Ordered Tamiflu Cap 75 mg PO. Medical Decision Differential diagnoses include: viral syndrome, intracranial bleed, bacterial infection. 86 year presented to the emergency room from [facility] for evaluation of decreased by mouth intake and decreased verbal expression of herself over the last few days. This history was confirmed with Bessy at [facility] who reports she knows patient well. Patient is already known to have influenza A. Patient is awake, pleasant and cooperative although she appears tired. She is not oriented to place, year or president. Bessy says this is a change from her baseline. However today's examination the emergency room does not reveal findings that would justify hospitalization at this time. I believe is the best interest of the patient as well as others that she be discharged back to [facility]. Should her clinical circumstances change significantly it is advised she will return to emergency room for further evaluation. Tamiflu ordered in ER as well as prescription. I asked case management indicate these findings to croft to ensure a smooth transition of care and to set expectations for care. Consults Time Called: [phone] Consulting Physician: A staff member at [facility] Returned Call: [phone] I discussed the patient with a staff member at [facility] - she said that the patient has had worsening speaking difficulties over the past several days. Impression Primary Impression: Influenza Scribe Attestation The scribe's documentation has been prepared under my direction and personally reviewed by me in its entirety. I confirm that the note above accurately reflects all work, treatment, procedures, and medical decision making performed by me. Departure Information Dispostion Home / Self-Care Prescriptions Oseltamivir (Tamiflu) 75 Mg Cap 75 MG PO BID, #10 CAP Prov: Anshu Guerrier MD 09/16/16 Referrals [facility],Personal Care,[facility] (PCP) Forms HOME CARE DOCUMENTATION FORM, IMPORTANT VISIT INFORMATION Patient Instructions A Signature Page, ED Flu, My [facility] Additional Instructions
[2016-09-16 12:28] LABS: ALB/GLOB RATIO 0.9 (0.9-2); ALKALINE PHOSPHATASE 68 U/L (45-117); ALT/SGPT 12 U/L (12-78); BLOOD UREA NITROGEN 32 mg/dl (7-18); BUN/CREATININE RATIO 49.1 (10-20); CALCIUM 9.1 mg/dl (8.5-10.1); CARBON DIOXIDE 29 mmol/L (21-32); CHLORIDE 101 mmol/L (98-107); CREATININE 0.65 mg/dl (0.60-1.20); GLUCOSE 101 mg/dl (70-99); SODIUM 139 mmol/L (136-145)
[2016-09-16 12:34] LABS: MEAN PLATELET VOLUME 10.3 fL (7.4-10.4); PLATELET COUNT 94 K/uL (130-400)
[2016-09-16 12:35] LABS: BASO % 0.3 %; BASO ABS # 0.01 K/uL (0-0.2); COMPLETE YES; EOS % 3.4 %; LYMPH % 36.3 %; MONO % 10.6 %; NEUT % 49.4 %
--- NOTE | 2016-09-16 12:46 | DIAGNOSTIC IMAGING REPORT ---
CT HEAD WITHOUT CONTRAST (CT) CLINICAL HISTORY: Acute change in mental status. Flulike symptoms. COMPARISON STUDY: 09/12/2016 TECHNIQUE: Axial CT of the brain is performed from the vertex to the skull base. IV contrast was not administered for this examination. CT DOSE: 638.56 mGycm FINDINGS: No intra or extra-axial mass lesions are visualized. There is no CT evidence of acute cortical infarction. There is no evidence of midline shift. There is no acute hemorrhage. No calvarial fractures are visualized. There are moderate white matter hypodensities likely on a small vessel basis. There is an old left occipital lobe infarct. There are old bilateral thalamic, and basal ganglia infarcts. There is no evidence of pathologic ventricular dilatation. There is a trace left maxillary sinus air-fluid level. There is mucosal thickening within the right maxillary sinus. There is minimal sphenoid and ethmoid sinus mucosal thickening IMPRESSION: 1. Interval development of a trace left maxillary sinus air-fluid level 2. No acute intracranial findings Electronically signed by: Aníbal Guajardo M.D. 09/16/2016 12:44 PM Dictated Date/Time: 09/16/2016 12:42 PM
[2016-09-16 13:18] VITALS: O2SAT 96
[2016-09-16 13:28] LABS: POTASSIUM 3.9 mmol/L (3.5-5.1)
[2016-09-16 13:53] LABS: URINE APPEARANCE CLEAR (CLEAR); URINE COLOR DK YELLOW; URINE EPITHELIAL CELL AUTO >30 /lpf (0-5); URINE NITRITE NEG (NEG); URINE PH 5.5 (4.5-7.5); URINE SPECIFIC GRAVITY 1.021 (1.000-1.030); UROBILINOGEN NEG (NEG)
[2016-09-16 14:08] LABS: MANUAL MICROSCOPIC REQUIRED? NO; REVIEW REQ? YES; URINE BILIRUBIN NEG (NEG)
[2016-09-16 14:09] LABS: URINE MUCUS PRESENT (NONE PRSENT)
--- NOTE | 2016-09-16 14:59 | DIAGNOSTIC IMAGING REPORT ---
CHEST 2 VIEWS ROUTINE CLINICAL HISTORY: Altered mental status. Flu. COMPARISON STUDY: Chest radiograph February or 2016. FINDINGS: No pneumothorax or pleural effusion is present. There is no consolidation. Pulmonary vascularity is normal. Cardiomediastinal silhouette is stable. A 1.8 cm left infrahilar density likely reflects normal vessels. IMPRESSION: 1. No acute cardiopulmonary findings. 2. 1.8 cm left perihilar density. This likely reflects normal vessels. A nodule is considered less likely. Short-term follow-up PA and shallow oblique radiographs of the chest are recommended. Electronically signed by: Stuart Salcido M.D. 09/16/2016 2:57 PM Dictated Date/Time: 09/16/2016 2:54 PM
[2016-09-16] MEDS ORDERED: OSEL75CA12 PO (15:06)
[2016-09-16 16:03] VITALS: BP 140/80; PULSE 60; TEMP 36.8; O2SAT 94
--- NOTE | 2016-09-16 16:26 | Pharmacy Progress Note ---
ED Pharmacist Progress Note Date of Service: Sep 16, 2016. Received a phone call from Pinky, stating Rx had been phoned to [facility] and should have been phoned to [facility] in [place] ([phone]). I called the Rx to this pharmacy for Tamiflu 75mg PO BID x 5 days No Refills, Dr Guerrier. Notified Carlos Madsen that Rx sent there needed to be cancelled.
[2016-09-16] MEDS ORDERED: OSELTAMIVIR PHOSPHATE 75 MG CAP PO SCH (21:00)
[2016-11-27] MEDS ORDERED: LISI-729 PO (13:20)
[2016-11-27] MEDS ORDERED: SITA1TAB27 PO (14:17)
[2016-11-27] MEDS ORDERED: OMEP20CA59 PO (14:17)
== END 2016-09-16 16:05 | disposition home or self-care (01) ==
LOC: EDBD 11:20 → C.EDC 11:22
DX: J11.1 Influenza due to unidentified influenza virus with other respiratory manifestations (principal); I10 Essential (primary) hypertension; F32.9 Major depressive disorder, single episode, unspecified; E11.9 Type 2 diabetes mellitus without complications; E03.9 Hypothyroidism, unspecified; K21.9 Gastro-esophageal reflux disease without esophagitis; R91.8 Other nonspecific abnormal finding of lung field; Z86.73 Personal history of transient ischemic attack (TIA), and cerebral infarction without residual deficits

== ENCOUNTER → 2016-09-25 | Outpatient (CLI) | payer OTHER ==
[~2016-09-25] MED LIST changes: +ACET325T96 PO; -ASPCH81 PO; +CITA20TA9 PO; +CLOP1TAB15 PO; +LEVO50TA PO; +LISI-729 PO; +MAGNTAB4 PO; +METH1TAB5 PO; +NF406 PO; +NUTR-706 PO; +OMEP20CA59 PO; +OSEL75CA12 PO; +PSYL48.58 PO; +SITA1TAB27 PO; +[UNRECOGNIZED DRUG - CODE] PO
[2016-09-25 08:27] LABS: HEMATOCRIT 36.9 % (37-47); MEAN CELL VOLUME 104.8 fL (80-100); MEAN CORPUSCULAR HEMOGLOBIN 35.5 pg (25-34); MEAN CORPUSCULAR HGB CONC 33.9 g/dl (32-36); MEAN PLATELET VOLUME 10.4 fL (7.4-10.4); PLATELET COUNT 101 K/uL (130-400); RED BLOOD COUNT 3.52 M/uL (4.2-5.4); WHITE BLOOD COUNT 5.24 K/uL (4.8-10.8)
--- NOTE | 2016-09-27 12:25 | CODING QUERY NO DIAGNOSIS ---
TREATMENT RENDERED WITHOUT A DIAGNOSIS To promote full compliance with coding requirements relating to patient care, physician participation is requested in all cases of core measures abstractor uncertainty. Please assist us with providing a diagnosis/symptom for the test(s) below: A diagnosis/symptom was not documented on your Order. A valid diagnosis/symptom is required to bill all insurances. Please remember that we are unable to code a diagnosis of rule out, probable, possible, questionable, or suspected. Tests that require a diagnosis: * PARTIAL RENAL PROFILE DOS: 09/25/16 DIAGNOSIS: * CBC W/O DIFF DOS: 09/25/16 DIAGNOSIS: Provider Signature: Date: Thank you Sarah Capps Health Information Management Once completed, please kindly fax back to [phone] For questions please call [phone]
== END | disposition home or self-care (01) ==
LOC: C.LABSPEC 07:49
PROVIDERS: ATTEND Internal Medicine
DX: D64.9 Anemia, unspecified (principal); I11.9 Hypertensive heart disease without heart failure

== ENCOUNTER → 2016-10-31 | Outpatient (CLI) | payer OTHER ==
[2016-10-31 15:52] LABS: URINE APPEARANCE CLEAR (CLEAR); URINE BILIRUBIN NEG (NEG); URINE COLOR YELLOW; URINE EPITHELIAL CELL AUTO 0-5 /lpf (0-5); URINE NITRITE POS (NEG); URINE PH 5.5 (4.5-7.5); URINE SPECIFIC GRAVITY 1.019 (1.000-1.030); UROBILINOGEN NEG (NEG)
[2016-10-31 15:59] LABS: MANUAL MICROSCOPIC REQUIRED? NO; REVIEW REQ? NO
== END | disposition home or self-care (01) ==
LOC: C.LABSPEC 15:23
PROVIDERS: ATTEND Nurse Practitioner Family
DX: R35.0 Frequency of micturition (principal); R39.15 Urgency of urination

== ENCOUNTER 2016-11-27 17:34 | Emergency (ER) | payer OTHER ==
[~2016-11-27 17:34] MED LIST changes: -ACET325T96 PO; -CITA20TA9 PO; -CLOP1TAB15 PO; -LEVO50TA PO; -MAGNTAB4 PO; -METH1TAB5 PO; -NUTR-706 PO; -PSYL48.58 PO; -[UNRECOGNIZED DRUG - CODE] PO
--- NOTE | 2016-11-27 18:08 | DIAGNOSTIC IMAGING REPORT ---
CT HEAD WITHOUT CONTRAST (CT) CLINICAL HISTORY: Head pain. Head trauma. Confusion. COMPARISON STUDY: 09/16/2016 TECHNIQUE: Axial CT of the brain is performed from the vertex to the skull base. IV contrast was not administered for this examination. CT DOSE: 1372.27 mGy.cm FINDINGS: No intra or extra-axial mass lesions are visualized. There is no CT evidence of acute cortical infarction. There is no evidence of midline shift. There is no acute hemorrhage. No calvarial fractures are visualized. There are moderate white matter hypodensities likely on a small vessel basis. There is an old left occipital infarct. There are old bilateral thalamic and basal ganglia lacunar infarcts. There is no evidence of pathologic ventricular dilatation. There is polypoid mucosal thickening involving the left maxillary sinus. There is a right frontoparietal scalp hematoma. IMPRESSION: 1. Right frontoparietal scalp hematoma 2. No evidence of acute intracranial injury Electronically signed by: Aníbal Guajardo M.D. 11/27/2016 6:07 PM Dictated Date/Time: 11/27/2016 6:05 PM
--- NOTE | 2016-11-27 18:12 | DIAGNOSTIC IMAGING REPORT ---
CT OF THE CERVICAL SPINE CLINICAL HISTORY: Neck pain status post trauma COMPARISON STUDY: 09/12/2016 CT DOSE: TECHNIQUE: CT scan of the cervical spine was performed from the skull base to the thoracic inlet. Images are reviewed in the axial, sagittal, and coronal planes. IV contrast was not administered for this examination. FINDINGS: The visualized portions of the lung apices reveal no evidence of pneumothorax. There is mucosal thickening within the maxillary sinuses. The prevertebral soft tissues are normal. No fractures or traumatic subluxations are visualized. There are multilevel degenerative changes. There is 2.8 mm of anterior subluxation of C4 on C5, unchanged from the prior study and felt to be degenerative. There is disc space narrowing most pronounced at the C5-6 level. There is a slight reversal of the normal cervical lordosis. IMPRESSION: Multilevel degenerative change. No evidence of acute fracture or traumatic subluxation. Electronically signed by: Aníbal Guajardo M.D. 11/27/2016 6:11 PM Dictated Date/Time: 11/27/2016 6:07 PM
[2016-11-27] MEDS ORDERED: PSYL48.58 PO (18:15)
[2016-11-27] MEDS ORDERED: [UNRECOGNIZED DRUG - CODE] PO (18:15)
[2016-11-27] MEDS ORDERED: NUTR-706 PO (18:15)
[2016-11-27] MEDS ORDERED: ACET325T96 PO (18:41)
[2016-11-27] MEDS ORDERED: MAGNTAB4 PO (18:41)
--- NOTE | 2016-11-27 18:45 | DIAGNOSTIC IMAGING REPORT ---
LEFT TIBIA/FIBULA 2 VIEWS ROUTINE CLINICAL HISTORY: Left lower leg pain status post trauma COMPARISON: None DISCUSSION: The bones are mildly osteopenic. No acute fractures are visualized. There is a plantar calcaneal spur. IMPRESSION: No fractures identified. Electronically signed by: Aníbal Guajardo M.D. 11/27/2016 6:44 PM Dictated Date/Time: 11/27/2016 6:43 PM
--- NOTE | 2016-11-27 18:46 | DIAGNOSTIC IMAGING REPORT ---
LEFT HAND MIN 3 VIEWS ROUTINE CLINICAL HISTORY: Left hand pain status post trauma COMPARISON: None. DISCUSSION: The bones are osteopenic. There are mild degenerative changes. No acute fractures are visualized. There are no dislocations. There is no evidence for soft tissue swelling. IMPRESSION: No acute fractures or dislocations identified. Electronically signed by: Aníbal Guajardo M.D. 11/27/2016 6:45 PM Dictated Date/Time: 11/27/2016 6:44 PM
--- NOTE | 2016-11-27 18:48 | DIAGNOSTIC IMAGING REPORT ---
LEFT ANKLE MIN 3 VIEWS ROUTINE CLINICAL HISTORY: Left ankle pain status post trauma COMPARISON: None. DISCUSSION: The bones are osteopenic. There is a plantar calcaneal spur. No acute fractures or dislocations are visualized. IMPRESSION: No fractures or dislocations identified. Electronically signed by: Aníbal Guajrado M.D. 11/27/2016 6:46 PM Dictated Date/Time: 11/27/2016 6:46 PM
--- NOTE | 2016-11-27 19:08 | EMERGENCY ROOM VISIT NOTE ---
History Report prepared by Fredi: Roslyn aGlvin Under the Supervision of: Dr. Stuart Pinzon M.D. 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 Her caregiver reports that the patient was ambulating with her walker when she fell. She hit her head and the patient was indicating left ankle pain. The history is limited due to the patient's dementia. History Limited By: dementia Onset: ANIMAL CHIROPRACTOR Position: ankle (left) Review of Systems ROS unobtainable due to patient's mental status. Past Medical & Surgical Medical Problems: (1) Benign hypertension (2) CVA (cerebral vascular accident) (3) Depression (4) Diabetes mellitus type 2 (5) EKG abnormalities (6) Gastroesophageal reflux disease (7) History breast surgery for abscess (8) History of appendectomy (9) History of cholecystectomy (10) History of repair of inguinal hernia (11) Hypothyroidism (12) Liver mass Family History No pertinent family history Noncontributory secondary to age. Social History Smoking Status: Unknown if Ever Smoked Alcohol Use: none Drug Use: none Marital Status: Housing Status: lives alone, [facility] Occupation Status: retired Current/Historical Medications Scheduled Citalopram Hydrobromide (Celexa), 20 MG PO DAILY Clopidogrel (Plavix), 75 MG PO DAILY Levothyroxine Sodium (Synthroid), 50 MCG PO DAILY Lisinopril (Zestril), 5 MG PO QAM Magnesium Chloride (Slow-Mag Tab), 64 MG PO DAILY Methenamine Hippurate (Methenamine Hippurate), 1 GM PO BID Omeprazole (Prilosec), 20 MG PO BID Psyllium (Metamucil Original Textur), 1 TBS PO DAILY Sitagliptin (Januvia), 100 MG PO QAM Scheduled PRN Acetaminophen Tab (Tylenol), 650 MG PO Q4H PRN for Pain Dextromethorphan-Guaifenesin (Robitussin Cough & Chest 5-100 mg/5Ml), 10 ML PO TID PRN for Cough/Congestion Enteral Nutrition Formula (Ensure), 1 CAN PO DAILY PRN for When 50% Of Meal Taken Allergies Coded Allergies: Codeine (Verified Allergy, Mild, 06/21/16) Erythromycin (Verified Allergy, Mild, 06/21/16) Metformin (Verified Allergy, Unknown, UNKN, 06/21/16) Morphine and Related (Verified Allergy, Unknown, unkn, 06/21/16) Physical Exam Vital Signs Date Time Temp Pulse Resp B/P Pulse Ox O2 Delivery O2 Flow Rate FiO2 11/27/16 20:23 59 20 176/88 99 Room Air 11/27/16 19:35 36.8 63 20 197/94 96 11/27/16 17:43 36.8 63 20 197/94 96 Room Air Physical Exam GENERAL: Patient is demented and in minimal distress. HEENT: No acute trauma, mucous membranes moist, no nasal congestion, no scleral icterus. Bruising over right forehead. NECK: No stridor, no adenopathy, no meningismus, trachea is midline. LUNGS: No dyspnea. Clear to auscultation and equal bilaterally. No wheeze, no rhonchi. HEART: Regular rate and rhythm. No murmurs, rubs, gallops appreciated. ABDOMEN: Soft, nontender, bowel sounds positive, no masses appreciated, no peritonitis. BACK: No midline tenderness, no CVA tenderness EXTREMITIES: Normal motion all extremities, no cyanosis, no edema. Bruising over left lateral hand with tenderness to palpation. Tenderness to palpation over left tibia. No pain with range of motion of the ankle. NEUROLOGIC: Smiling, no acute motor or sensory deficits, no focal weakness, cranial nerves grossly intact. SKIN: No rash, no jaundice, no diaphoresis. Medical Decision & Procedures ER Provider Diagnostic Interpretation: X ray results are stated below per my interpretation and the radiologist's interpretation. Radiology results and stated below per my review and radiologist interpretation: LEFT ANKLE MIN 3 VIEWS ROUTINE CLINICAL HISTORY: Left ankle pain status post trauma COMPARISON: None. DISCUSSION: The bones are osteopenic. There is a plantar calcaneal spur. No acute fractures or dislocations are visualized. IMPRESSION: No fractures or dislocations identified. Electronically signed by: Aníbal Guajardo M.D. 11/27/2016 6:46 PM Dictated Date/Time: 11/27/2016 6:[address] OF THE CERVICAL SPINE CLINICAL HISTORY: Neck pain status post trauma COMPARISON STUDY: 09/12/2016 CT DOSE: TECHNIQUE: CT scan of the cervical spine was performed from the skull base to the thoracic inlet. Images are reviewed in the axial, sagittal, and coronal planes. IV contrast was not administered for this examination. FINDINGS: The visualized portions of the lung apices reveal no evidence of pneumothorax. There is mucosal thickening within the maxillary sinuses. The prevertebral soft tissues are normal. No fractures or traumatic subluxations are visualized. There are multilevel degenerative changes. There is 2.8 mm of anterior subluxation of C4 on C5, unchanged from the prior study and felt to be degenerative. There is disc space narrowing most pronounced at the C5-6 level. There is a slight reversal of the normal cervical lordosis. IMPRESSION: Multilevel degenerative change. No evidence of acute fracture or traumatic subluxation. Electronically signed by: Aníbal Guajardo M.D. 11/27/2016 6:11 PM Dictated Date/Time: 11/27/2016 6:07 PM LEFT HAND MIN 3 VIEWS ROUTINE CLINICAL HISTORY: Left hand pain status post trauma COMPARISON: None. DISCUSSION: The bones are osteopenic. There are mild degenerative changes. No acute fractures are visualized. There are no dislocations. There is no evidence for soft tissue swelling. IMPRESSION: No acute fractures or dislocations identified. Electronically signed by: Aníbal Guajardo M.D. 11/27/2016 6:45 PM Dictated Date/Time: 11/27/2016 6:[address] HEAD WITHOUT CONTRAST (CT) CLINICAL HISTORY: Head pain. Head trauma. Confusion. COMPARISON STUDY: 09/16/2016 TECHNIQUE: Axial CT of the brain is performed from the vertex to the skull base. IV contrast was not administered for this examination. CT DOSE: 1372.27 mGy.cm FINDINGS: No intra or extra-axial mass lesions are visualized. There is no CT evidence of acute cortical infarction. There is no evidence of midline shift. There is no acute hemorrhage. No calvarial fractures are visualized. There are moderate white matter hypodensities likely on a small vessel basis. There is an old left occipital infarct. There are old bilateral thalamic and basal ganglia lacunar infarcts. There is no evidence of pathologic ventricular dilatation. There is polypoid mucosal thickening involving the left maxillary sinus. There is a right frontoparietal scalp hematoma. IMPRESSION: 1. Right frontoparietal scalp hematoma 2. No evidence of acute intracranial injury Electronically signed by: Aníbal Guajardo M.D. 11/27/2016 6:07 PM Dictated Date/Time: 11/27/2016 6:05 PM LEFT TIBIA/FIBULA 2 VIEWS ROUTINE CLINICAL HISTORY: Left lower leg pain status post trauma COMPARISON: None DISCUSSION: The bones are mildly osteopenic. No acute fractures are visualized. There is a plantar calcaneal spur. IMPRESSION: No fractures identified. Electronically signed by: Aníbal Guajardo M.D. 11/27/2016 6:44 PM Dictated Date/Time: 11/27/2016 6:43 PM ED Course 1738: The patient was evaluated in room B11. A complete history and physical exam was performed. 192: I reevaluated the patient. She is stable and in no distress. I discussed results and discharge instructions with her caregiver: she verbalized understanding and agreement. The patient is ready for discharge. Medical Decision 86 yr old female arrives for evaluation of fall at [facility]. She has bruising left hand, mild tibial TTP and bruise on forehead. Given dementia felt CT head and cspine necessary. Hand/lower leg imaging negative for acute findings. Patient happy and in no distress on repeat evaluations. Discharge back to home. Impression Primary Impression: Fall Additional Impressions: Contusion of multiple sites Forehead contusion Head injury, closed Scribe Attestation The scribe's documentation has been prepared under my direction and personally reviewed by me in its entirety. I confirm that the note above accurately reflects all work, treatment, procedures, and medical decision making performed by me. Departure Information Dispostion Home / Self-Care Referrals [facility] (PC[facility]) Forms HOME CARE DOCUMENTATION FORM, IMPORTANT VISIT INFORMATION Additional Instructions CT scanning of Head and Neck revealed no fractures nor bleeding. No fractures were found on xrays of hand, lower left leg nor left ankle. Problem Qualifiers Primary Impression: Fall Encounter type: initial encounter Qualified Codes: W19.XXXA - Unspecified fall, initial encounter Additional Impressions: Forehead contusion Encounter type: initial encounter Qualified Codes: S00.83XA - Contusion of other part of head, initial encounter Head injury, closed Encounter type: initial encounter Qualified Codes: S09.90XA - Unspecified injury of head, initial encounter
[2016-11-27 19:35] VITALS: TEMP 36.8
[2016-11-27 20:23] VITALS: BP 176/88; PULSE 59; O2SAT 99
[2016-11-27] MEDS ORDERED: METH1TAB5 PO (22:23)
[2016-11-27] MEDS ORDERED: CLOP1TAB15 PO (22:23)
[2016-11-27] MEDS ORDERED: CITA20TA9 PO (22:23)
[2016-11-27] MEDS ORDERED: LEVO50TA PO (22:23)
== END 2016-11-27 19:36 | disposition home or self-care (01) ==
LOC: EDBD 17:34 → C.EDB 17:37
DX: S09.90XA Unspecified injury of head, initial encounter (principal); S00.93XA Contusion of unspecified part of head, initial encounter; W22.8XXA Striking against or struck by other objects, initial encounter; I10 Essential (primary) hypertension; E11.9 Type 2 diabetes mellitus without complications; K21.9 Gastro-esophageal reflux disease without esophagitis; E03.9 Hypothyroidism, unspecified; F32.9 Major depressive disorder, single episode, unspecified; Z86.73 Personal history of transient ischemic attack (TIA), and cerebral infarction without residual deficits; Z90.49 Acquired absence of other specified parts of digestive tract; Z98.890 Other specified postprocedural states; Z79.899 Other long term (current) drug therapy; Z88.5 Allergy status to narcotic agent; Z88.8 Allergy status to other drugs, medicaments and biological substances

== ENCOUNTER → 2016-12-05 | Outpatient (CLI) | payer OTHER ==
[~2016-12-05] MED LIST changes: +ACET325T96 PO; +CITA20TA9 PO; +CLOP1TAB15 PO; +LEVO50TA PO; +MAGNTAB4 PO; +METH1TAB5 PO; -NF406 PO; +NUTR-706 PO; -OSEL75CA12 PO; +PSYL48.58 PO; -PSYL48.59 PO; +[UNRECOGNIZED DRUG - CODE] PO; -[UNRECOGNIZED DRUG - CODE] PO
[2016-12-05 12:55] LABS: URINE APPEARANCE CLOUDY (CLEAR); URINE BILIRUBIN NEG (NEG); URINE COLOR YELLOW; URINE EPITHELIAL CELL AUTO >30 /lpf (0-5); URINE NITRITE NEG (NEG); URINE PH 5.5 (4.5-7.5); URINE SPECIFIC GRAVITY 1.027 (1.000-1.030); UROBILINOGEN NEG (NEG)
[2016-12-05 13:10] LABS: MANUAL MICROSCOPIC REQUIRED? NO; REVIEW REQ? YES
[2016-12-05 13:24] LABS: URINE MUCUS PRESENT (NONE PRSENT)
== END | disposition home or self-care (01) ==
LOC: C.LABSPEC 12:11
PROVIDERS: ATTEND Internal Medicine
DX: N39.0 Urinary tract infection, site not specified (principal)

== ENCOUNTER → 2017-01-22 | Outpatient (CLI) | payer OTHER ==
[~2017-01-22] MED LIST changes: +METH-1305 PO; -METH1TAB5 PO
== END | disposition home or self-care (01) ==
LOC: C.LABSPEC 14:35
PROVIDERS: ATTEND Nurse Practitioner Adult Health
DX: E03.9 Hypothyroidism, unspecified (principal)